=== PATIENT | male | born 1975 | race Two or more races ===

== ENCOUNTER 2018-07-17 00:29 | Emergency (ER) | payer SELFPAY ==
[~2018-07-17] VITALS: Ht 165.1 cm; Wt 81.6 kg
[2018-07-17 01:08] VITALS: BP 146/99
== END 2018-07-17 01:14 ==
LOC: ER 00:29
DX: F10.120 Alcohol abuse with intoxication, uncomplicated (principal); Z02.89 Encounter for other administrative examinations; V48.9XXA Unspecified car occupant injured in noncollision transport accident in traffic accident, initial encounter; Y93.89 Activity, other specified; Y99.8 Other external cause status; Y92.89 Other specified places as the place of occurrence of the external cause